=== PATIENT | male | born 1940 | race Caucasian/White ===

== ENCOUNTER → 2017-12-03 | Outpatient (CLI) | payer OTHER, MEDICARE | LOC: BHFA 10:45 | PROVIDERS: ATTEND Internal Medicine | DX: Z95.0 Presence of cardiac pacemaker (principal) ==

== ENCOUNTER 2017-12-31 10:38 | Day surgery (SDC) | payer OTHER, MEDICARE ==
[2017-12-31] MEDS ORDERED: DIAZEPAM 5 MG TAB PO ONE (10:42)
[2017-12-31] MEDS ORDERED: NS 1,000 ML IV ONE (10:42)
[2017-12-31] MEDS ORDERED: ceFAZolin 2 GM/DEXTROSE 100 ML IV ONE (10:42)
[2017-12-31] MEDS ORDERED: diphenhydrAMINE 25 MG CAP PO ONE (10:42)
[2017-12-31] MEDS ORDERED: BACITRACIN IRRIGATION/NS 50,000 UNITS/1,000 ML BTL IRR ONE (10:42)
[2017-12-31 11:28] LABS: PLATELET COUNT 152 10^3/uL (150-400)
[2017-12-31 11:37] LABS: INR 1.1 (0.83-1.16); PROTIME(PATIENT) 14.4 SEC (12.0-15.0)
--- NOTE | 2017-12-31 11:55 | PDGENHP ---
History & Physical Chief Complaint: symptomatic bradycardia Relevant Physical Exam: s1s2 rrr cta ao3 Cardiorespiratory Assessment: pacemaker at mariann, for gen change
--- NOTE | 2017-12-31 11:56 | PDPROPOC ---
Sedation Plan of Care Sedation Plan of Care: vital signs stable, mental status noted, patient educated of risks, benefits, alternatives, patient can tolerate sedation ASA Classification: ASA 2 Planned drugs: fentanyl, midazolam Mallampati Score: Class 2 Mallampati Reference Image: Patient passed 3-3-2 rule?: Yes
[2017-12-31] MEDS ORDERED: MIDAZOLAM 2 MG/2 ML VIAL ONE (11:58)
[2017-12-31] MEDS ORDERED: LIDOCAINE 1% 300 MG/30 ML SDV ONE (11:58)
[2017-12-31] MEDS ORDERED: fentaNYL 100 MCG/2 ML INJ ONE (11:58)
[2017-12-31] MEDS ORDERED: BUPIVACAINE 0.5% 30 ML SDV ONE (11:59)
--- NOTE | 2018-01-06 11:04 | CPEKG ---
Heart Rate: 60 RR Interval: 1000 P-R Interval: 156 QRSD Interval: 166 QT Interval: 460 QTC Interval: 460 QRS [place]: -61 T Wave [place]: 104 EKG Severity - ABNORMAL ECG - EKG Impression: ATRIAL-VENTRICULAR DUAL-PACED COMPLEXES Electronically Signed By: Gustavo Tse 09-Jan-2018 16:22:43
--- NOTE | 2018-01-22 12:53 | EPPROC ---
Electrophysiology Procedure Note: Procedure date 12/31/2017 PROCEDURE PERFORMED: 1. AV Pacemaker generator change INDICATION: Pacemaker generator at VIN Bradycardia PROCEDURE NOTE: Patient presented to the cardiac catheterization laboratory in a fasting, postabsorptive state. EP RN administered sedation. The left infraclavicular area was prepped and draped in the usual sterile fashion. Lidocaine plus bupivacaine was used for local anesthesia. Using a combination of blunt and sharp dissection and electrocautery, the dissection was carried down to the prepectoral fascia and the existing pacemaker pocket was opened. The pacemaker generator was disconnected from the leads and the lead thresholds and impedance were checked. The pacemaker pocket was copiously irrigated with antibiotic solution. The pocket was again inspected for any bleeding. The leads were attached to the pacemaker securely. The pacemaker was inserted into the pocket and secured in place with a nonabsorbable suture. The pacemaker pocket was closed in 3 layers with absorbable monocryl sutures and nicole. Appropriate dressing was applied. The patient left the cardiac catheterization laboratory in stable condition. Serial Numbers: 1. Device [employer]otronik Edora [id number] 2. Atrial Lead Medtronic 4075 -45 [id number] V 3. Ventricular Lead Medtronic 4076-52 [id number] Stimulation Thresholds & Impedance Measurements: 1. Atrial Lead P 3.7 mV 0.5 V 0.5 ms 468 ohm 2. Ventricular Lead 0.7V 0.5 ms 526 ohm Stiven Pacing Parameters 1. Pacing mode DDD CLS 2. Lower rate 60 ppm 3. Upper tracking rate 140 pm 4. Upper sensor rate 140 ppm Patient Problems: Problems Problem Status Onset Bradycardia Acute
== END 2017-12-31 15:49 | disposition home or self-care (01) ==
LOC: FCATH 10:38
PROVIDERS: ATTEND Internal Medicine Cardiovascular Disease
PROC: 0JH606Z Insertion of Pacemaker, Dual Chamber into Chest Subcutaneous Tissue and Fascia, Open Approach (ICD-10-PCS; principal; 2017-12-31)
PROC: 0JPT0PZ Removal of Cardiac Rhythm Related Device from Trunk Subcutaneous Tissue and Fascia, Open Approach (ICD-10-PCS; principal; 2017-12-31)
DX: Z45.010 Encounter for checking and testing of cardiac pacemaker pulse generator [battery] (principal); I44.2 Atrioventricular block, complete
CPT/HCPCS: C1785; J0690; J2250; J3010

== ENCOUNTER → 2018-04-03 | Outpatient (CLI) | payer OTHER, MEDICARE | LOC: GIMAGING 18:25 | PROVIDERS: ATTEND Nurse Practitioner Acute Care | DX: S89.91XA Unspecified injury of right lower leg, initial encounter (principal) | CPT/HCPCS: 73562-PO ==